=== PATIENT | male | born 1970 | race Caucasian/White ===

== ENCOUNTER 2016-10-21 12:23 | Observation (INO) | payer MEDICAID ==
[~2016-10-21] VITALS: Ht 182.9 cm; Wt 132.4 kg
[~2016-10-21 12:23] MED LIST: ASPI81CH43 PO; ENAL20TA70 PO; GLYB5TAB8 PO; METF-316 PO; TRIA50CA40 PO
[2016-10-21] MEDS ORDERED: SODIUM CHLORIDE 0.9% 1,000 ML IVB ONE (14:08)
[2016-10-21 15:04] LABS: Albumin 3.7 g/dL (3.4-5.0); BUN/Creatinine Ratio 16.7; Calcium 8.7 mg/dL (8.5-10.1); Magnesium 2.1 mg/dL (1.6-2.6); Potassium 4.7 mmol/L (3.5-5.1)
[2016-10-21 15:10] LABS: Bilirubin, Total 0.6 mg/dL (0.2-1.0); Total Protein 7.9 g/dL (6.4-8.2)
[2016-10-21 15:45] LABS: Basophils # (auto) 0.1 uL; Basophils % (auto) 0.6 % (0.0-2.0); Eosinophils # (auto) 0.5 uL; Eosinophils % (auto) 3.4 % (0.0-7.0); Hematocrit 48.8 % (41.0-53.0); Hemoglobin 16.5 g/dL (13.5-17.5); Lymphocytes # (auto) 2.3 uL; Lymphocytes % (auto) 16.5 % (10.0-50.0); Mean Corpuscular Hemoglobin 27.7 pg (28.0-32.0); Mean Corpuscular Hgb Conc. 33.7 g/dL (32.0-36.0); Mean Corpuscular Volume 82.3 fL (80.0-100.0); Mean Platelet Volume 9.5 fL (7.4-10.4); Monocytes # (auto) 0.8 uL; Monocytes % (auto) 5.4 % (0.0-12.0); Neutrophils # (auto) 10.4 uL; Neutrophils % (auto) 74.1 % (37.0-80.0); Platelet Count (auto) 408 10^3/uL (140-450); Red Cell Distribution Width 14.9 % (11.6-16.0); White Blood Cell 14.1 10^3/uL (4.4-10.8)
[2016-10-21 16:38] LABS: Urine Bilirubin Negative (Negative); Urine Blood Negative /uL (Negative); Urine Color Yellow (Yellow); Urine Ketone Negative (Negative); Urine Nitrite Negative (Negative); Urine RBC <1 /hpf (0 - 3); Urine Urobilinogen Normal (Negative)
[2016-10-21 16:51] LABS: Urine Glucose 3+ mg/dL (Normal)
[2016-10-21 17:08] VITALS: BP 136/87
== END 2016-10-21 17:32 | disposition home or self-care (01) | DRG 249 ==
LOC: ER 12:23 → OVERFLOW 12:24 → UNDOADMOB 12:24 → OVERFLOW 14:10 → ER 17:32 → UNDODISOB 17:33
PROVIDERS: ADMIT Emergency Medicine; ATTEND Emergency Medicine
DX: K52.9 Noninfective gastroenteritis and colitis, unspecified (principal); K90.49 Malabsorption due to intolerance, not elsewhere classified; I10 Essential (primary) hypertension; E11.9 Type 2 diabetes mellitus without complications; Z79.899 Other long term (current) drug therapy; Z79.82 Long term (current) use of aspirin
CPT/HCPCS: 36415; 71020; 74176; 80053; 81001; 82962; 83690; 83735; 85025; 93005; G0378

== ENCOUNTER 2017-07-17 21:44 | Emergency (ER) | payer MEDICAID ==
[~2017-07-17] VITALS: Ht 182.9 cm; Wt 136.1 kg
[~2017-07-17 21:44] MED LIST changes: -METF-316 PO; +METF-372 PO
[2017-07-17 22:05] VITALS: BP 170/99
[2017-07-17 23:10] LABS: Basophils # (auto) 0.1 uL; Basophils % (auto) 0.9 % (0.0-2.0); Eosinophils # (auto) 0.4 uL; Eosinophils % (auto) 3.1 % (0.0-7.0); Hematocrit 47.2 % (41.0-53.0); Hemoglobin 15.6 g/dL (13.5-17.5); Lymphocytes # (auto) 2.5 uL; Lymphocytes % (auto) 20.7 % (10.0-50.0); Mean Corpuscular Hemoglobin 28.4 pg (28.0-32.0); Mean Corpuscular Volume 86.1 fL (80.0-100.0); Mean Platelet Volume 9.1 fL (6.9-10.8); Monocytes # (auto) 0.9 uL; Monocytes % (auto) 7.4 % (0.0-12.0); Neutrophils # (auto) 8.3 uL; Neutrophils % (auto) 67.9 % (37.0-80.0); Platelet Count (auto) 300 10^3/uL (140-450); Red Cell Distribution Width 14.3 % (11.8-14.3); White Blood Cell 12.2 10^3/uL (4.4-10.8)
[2017-07-17 23:31] LABS: INR 0.96 (0.9-1.15); Partial Thromboplastin Time 26.2 sec (22.64-33.71); Prothrombin Time 10.5 sec (9.37-12.3)
[2017-07-17 23:41] LABS: Albumin 3.8 g/dL (3.4-5.0); BUN/Creatinine Ratio 10.1; Potassium 4.1 mmol/L (3.5-5.1)
[2017-07-17 23:54] LABS: Bilirubin, Total 0.8 mg/dL (0.2-1.0); Total Protein 7.9 g/dL (6.4-8.2)
== END 2017-07-18 03:00 | disposition left against medical advice (07) ==
LOC: ER 21:44
DX: M79.604 Pain in right leg (principal); Z53.21 Procedure and treatment not carried out due to patient leaving prior to being seen by health care provider
CPT/HCPCS: 36415; 80053; 85025; 85610; 85730; 93971

== ENCOUNTER 2017-10-04 21:29 | Emergency (ER) | payer MEDICAID ==
[~2017-10-04] VITALS: Ht 182.9 cm; Wt 136.1 kg
[2017-10-04 21:45] VITALS: BP 156/96
[2017-10-04 22:24] LABS: Hematocrit 47.8 % (41.0-53.0); Hemoglobin 16.1 g/dL (13.5-17.5); Mean Corpuscular Hemoglobin 29.1 pg (28.0-32.0); Mean Corpuscular Hgb Conc. 33.7 g/dL (32.0-36.0); Mean Corpuscular Volume 86.3 fL (80.0-100.0); Platelet Count (auto) 280 10^3/uL (140-450); Red Blood Cells 5.54 10^6/uL (4.5-5.90); Red Cell Distribution Width 14.4 % (11.8-14.3); White Blood Cell 9.2 10^3/uL (4.4-10.8)
[2017-10-04 22:32] LABS: Band Neutrophils % (manual) 0; Basophils % (manual) 0 (0.0-2.0); Blast Cells 0; Metamyelocytes % 0; Myelocytes % 0; Promyelocytes % 0; Reactive Lymphocytes 0
[2017-10-04 22:33] LABS: INR 0.96 (0.9-1.15); Partial Thromboplastin Time 26.4 sec (22.64-33.71); Prothrombin Time 10.5 sec (9.37-12.3)
[2017-10-04 22:34] LABS: Alanine Aminotransferase 24 U/L (16-61); Albumin 3.6 g/dL (3.4-5.0); Alkaline Phosphatase 103 U/L (45-117); Anion Gap 10 (5-15); Aspartate Aminotransferase 17 U/L (15-37); BUN/Creatinine Ratio 16.2; Bilirubin, Total 0.4 mg/dL (0.2-1.0); Blood Urea Nitrogen 17 mg/dL (7-18); Calcium 8.8 mg/dL (8.5-10.1); Carbon Dioxide 25 mmol/L (21-32); Chloride 99 mmol/L (98-107); GFR African American 97 mL/min; GFR Non-African American 80 mL/min; Magnesium 2.3 mg/dL (1.6-2.6); Potassium 4.4 mmol/L (3.5-5.1); Sodium 134 mmol/L (136-145); Total Protein 7.5 g/dL (6.4-8.2)
[2017-10-04 22:37] LABS: Eosinophils % (manual) 7 (0-7); Lymphocytes % (manual) 23 (10.0-50.0); Monocytes % (manual) 6 (0-12)
[2017-10-04 22:39] LABS: Glucose 415 mg/dL (74-106)
[2017-10-04] MEDS ORDERED: SODIUM CHLORIDE 0.9% 1,000 ML IV ONE (23:00)
[2017-10-05] MEDS ORDERED: InsuLIN REG 1unit/0.01ml Soln (100units/ml) IV ONE (00:45)
[2017-10-05] MEDS ORDERED: MORPHINE SULFATE 4 MG/ML SYR/VIAL IV ONE (01:00)
[2017-10-05] MEDS ORDERED: ONDANSETRON HCL 4 MG/2 ML VIAL IV ONE (01:00)
== END 2017-10-05 02:21 | disposition home or self-care (01) ==
LOC: EDBD 21:29 → ER 21:41
DX: R07.89 Other chest pain (principal); E11.65 Type 2 diabetes mellitus with hyperglycemia; I10 Essential (primary) hypertension; I25.2 Old myocardial infarction; Z79.82 Long term (current) use of aspirin
CPT/HCPCS: 36415; 71045; 80053; 82962; 83735; 83880; 84484; 85007; 85027; 85610; 85730; 93005; 96361; 96374; 96375; 99285; J1815; J2270; J2405; J7030

== ENCOUNTER 2018-07-31 10:46 | Emergency (ER) | payer MEDICAID ==
[~2018-07-31] VITALS: Ht 182.9 cm; Wt 131.5 kg
[2018-07-31] MEDS ORDERED: SODIUM CHLORIDE 0.9% 1,000 ML IV ONE (11:01)
[2018-07-31] MEDS ORDERED: KETOROLAC TROMETH 30 MG/ML 1ML VIAL IV ONE (11:15)
[2018-07-31] MEDS ORDERED: PROMETHAZINE HCL 25 MG/ML 1ML IV ONE (11:15)
[2018-07-31 11:46] LABS: Hematocrit 45.3 % (41.0-53.0); Hemoglobin 15.1 g/dL (13.5-17.5); Mean Corpuscular Hemoglobin 28.3 pg (28.0-32.0); Mean Corpuscular Hgb Conc. 33.3 g/dL (32.0-36.0); Platelet Count (auto) 167 10^3/uL (140-450); Red Blood Cells 5.33 10^6/uL (4.5-5.90); Red Cell Distribution Width 14.4 % (11.8-14.3); White Blood Cell 16.9 10^3/uL (4.4-10.8)
[2018-07-31 11:48] LABS: Basophils % (manual) 0 (0.0-2.0); Blast Cells 0; Eosinophils % (manual) 0 (0-7); Metamyelocytes % 0; Myelocytes % 0; Promyelocytes % 0; Reactive Lymphocytes 0
[2018-07-31 12:03] LABS: Band Neutrophils % (manual) 16; Lymphocytes % (manual) 3 (10.0-50.0); Monocytes % (manual) 6 (0-12)
[2018-07-31 12:04] LABS: Calcium 7.9 mg/dL (8.5-10.1); Potassium 4.1 mmol/L (3.5-5.1)
[2018-07-31 12:07] LABS: BUN/Creatinine Ratio 13.3; Bilirubin, Total 1.1 mg/dL (0.2-1.0)
[2018-07-31 14:57] VITALS: BP 112/56
[2018-07-31 15:59] LABS: Urine Bacteria FEW /hpf (None Seen); Urine Blood Negative /uL (Negative); Urine Hyaline Cast MOD /lpf (0 - 2); Urine WBC 4 /hpf (0 - 3)
== END 2018-07-31 16:32 | disposition home or self-care (01) ==
LOC: ER 10:46
DX: E86.0 Dehydration (principal); E11.65 Type 2 diabetes mellitus with hyperglycemia; M79.10 Myalgia, unspecified site; E11.21 Type 2 diabetes mellitus with diabetic nephropathy; E44.0 Moderate protein-calorie malnutrition; I10 Essential (primary) hypertension; I25.2 Old myocardial infarction; Z79.4 Long term (current) use of insulin; Z68.39 Body mass index [BMI] 39.0-39.9, adult
CPT/HCPCS: 36415; 71046; 80053; 81001; 82962; 83605; 83735; 84443; 85007; 85027; 87040; 87070; 87077; 87186; 87804; 87880; 96361; 96374; 96375; 99284; J1885; J2550; J7030

== ENCOUNTER 2018-08-02 11:18 | Inpatient (IN) | payer MEDICAID ==
[~2018-08-02] VITALS: Ht 182.9 cm; Wt 122.8 kg
[2018-08-02] MEDS ORDERED: SODIUM CHLORIDE 0.9% 1,000 ML IVB ONE (12:03)
[2018-08-02] MEDS ORDERED: cefTRIAXone 1GM/50ML D5W 50 ML IV ONE (12:30)
[2018-08-02 13:27] LABS: Basophils # (auto) 0 uL; Basophils % (auto) 0.2 % (0.0-2.0); Eosinophils # (auto) 0 uL; Eosinophils % (auto) 0.1 % (0.0-7.0); Hematocrit 43.8 % (41.0-53.0); Hemoglobin 14.1 g/dL (13.5-17.5); Lymphocytes # (auto) 0.4 uL; Lymphocytes % (auto) 2.8 % (10.0-50.0); Mean Corpuscular Hemoglobin 27.5 pg (28.0-32.0); Mean Corpuscular Hgb Conc. 32.2 g/dL (32.0-36.0); Mean Corpuscular Volume 85.4 fL (80.0-100.0); Monocytes # (auto) 0.8 uL; Monocytes % (auto) 5.2 % (0.0-12.0); Neutrophils # (auto) 13.6 uL; Neutrophils % (auto) 91.7 % (37.0-80.0); Nucleated Red Blood Cells % 0.1 %; Platelet Count (auto) 129 10^3/uL (140-450); Red Blood Cells 5.13 10^6/uL (4.5-5.90); White Blood Cell 14.8 10^3/uL (4.4-10.8)
[2018-08-02 13:44] LABS: Albumin 2.3 g/dL (3.4-5.0); Calcium 7.7 mg/dL (8.5-10.1); Potassium 3.3 mmol/L (3.5-5.1)
[2018-08-02 13:52] LABS: BUN/Creatinine Ratio 18.4; Total Protein 6.1 g/dL (6.4-8.2)
[2018-08-02] MEDS ORDERED: CLINDAMYCIN 600MG IV 50 ML IV ONE (14:15)
[2018-08-02] MEDS ORDERED: ACETAMINOPHEN 500 MG TAB PO PRN (14:45)
[2018-08-02] MEDS ORDERED: NITROGLYCERIN 0.4 MG SL TAB SL PRN (14:45)
[2018-08-02] MEDS ORDERED: LABETALOL HCL 5 MG/ML ML 20ML VIAL IV PRN (14:45)
[2018-08-02] MEDS ORDERED: VANCOMYCIN PER PHARMACY 0 MG IV SCH (14:45)
[2018-08-02] MEDS ORDERED: ONDANSETRON HCL 4 MG/2 ML VIAL IV PRN (14:45)
[2018-08-02] MEDS ORDERED: MORPHINE SULFATE 4 MG/ML SYR/VIAL IV PRN ×2 (14:45)
[2018-08-02] MEDS ORDERED: SODIUM CHLORIDE 0.9% 1,000 ML IV ONE (14:45)
[2018-08-02] MEDS ORDERED: InsuLIN REG 1unit/0.01ml Soln (100units/ml) IV ONE ×3 (14:45→20:45)
[2018-08-02] MEDS ORDERED: DEXTROSE (50%) 50ML SYRG IV PRN ×2 (14:45→17:30)
[2018-08-02 15:23] LABS: Amylase 14 U/L (25-115); Lipase 111 U/L (73-393)
[2018-08-02 15:34] LABS: INR 1.08 (0.9-1.15); Partial Thromboplastin Time 29.6 sec (23.78-33.04); Prothrombin Time 11.5 sec (9.27-12.13)
[2018-08-02] MEDS: SODIUM CHLORIDE 0.9% 1,000 ML IV SCH ×2 (16:10→22:21)
[2018-08-02] MEDS: VANCOMYCIN 1GM/250ML 250 ML IV SCH (16:16)
--- NOTE | 2018-08-02 16:27 | NUR ---
RECEIVED REPORT FROM ALETHA SHARIF FROM ER, WILL AWAIT PATIENTS ARRIVAL TO THE FLOOR.
[2018-08-02] MEDS ORDERED: InsuLIN REG 1unit/0.01ml Soln (100units/ml) SC SCH ×2 (17:00→22:00)
[2018-08-02] MEDS ORDERED: ACCU-CHEK COMFORT CURVE STRIP VI SCH (17:00)
--- NOTE | 2018-08-02 17:00 | NUR ---
RECEIVED PATIENT TO THE FLOOR AWAKE ALERT AND ORIENTED NO SIGNS AND SYMPTOMS OF DISTRESS NOTED. BED LOCKED IN LOWEST POSITION WITH TWO SIDE RAILS UP AND CALL LIGHT IN REACH. INSTRUCTED THE PATIENT ON THE PLAN OF CARE. WOUND PICTURES TAKEN AND ACCU CHECK WAS 468.
[2018-08-02] MEDS ORDERED: INSUINJ37 SC (17:07)
[2018-08-02] MEDS ORDERED: METO25TA5 PO (17:07)
[2018-08-02] MEDS ORDERED: ATOR10TA PO (17:07)
[2018-08-02] MEDS ORDERED: INSUINJ18 SC (17:08)
[2018-08-02 17:20] LABS: Lactic Acid w/Reflex 2.8 mmol/L (0.4-2.0)
--- NOTE | 2018-08-02 17:26 | NUR ---
PAGED ADMINISTRATION MANAGER HOSPITALIST AND DAVION BURTON RETURNED PHONE CALL. PATIENT IS TO RECEIVE 10 UNITS IV PUSH AND ADVANCE TO AGGRESSIVE SCALE AND COVER WITH THAT. SO THE PUSH WILL BE AC AND THE SUBCU WILL BE HS.
--- NOTE | 2018-08-02 17:40 | NUR ---
WOUND CARE PICTURES TAKEN X4
[2018-08-02] MEDS: ALBUTEROL SULF 2.5 MG/0.5ML(0.5%) NEB SOLN NEB SCH (18:59)
[2018-08-02] MEDS: IPRATROPIUM BROM 0.5 MG/2.5ML INH SOL NEB SCH (18:59)
--- NOTE | 2018-08-02 19:05 | NUR ---
ASSUMED PATIENT CARE- NOC SHIFT PATIENT IS ALERT AND ORIENTED X4, ANSWERS IN COMPLETE SENTENCES AND MAKES APPROPRIATE EYE CONTACT. PATIENT IS SITTING AT EDGE OF BED, COMPLAINING OF PAIN TO HIS RIGHT KNEE AND RIGHT LEG. PATIENT RATES PAIN 10/10; WILL ADMINISTER PAIN MEDICATION PER MD ORDERS. ASSISTED PATIENT BACK INTO BED AND PROVIDE A PILLOW TO ELEVATE HIS LEFT LEG. BED RAILS UP X2, HEAD OF BED IS UP >30 DEGREES FOR SAFETY PRECAUTIONS. BEDSIDE TABLE WITHIN REACH, CALL LIGHT WITHIN REACH. DISCUSSED POC WITH PATIENT AND INSTRUCTED PATIENT TO CALL PRN; PATIENT VERBALIZED UNDERSTANDING. WILL CONTINUE TO MONITOR Q1H AND PRN.
[2018-08-02 20:00] LABS: BUN/Creatinine Ratio 20.2; Calcium 7.4 mg/dL (8.5-10.1); Potassium 4.1 mmol/L (3.5-5.1)
[2018-08-02 20:02] LABS: Lactic Acid w/Reflex 2.8 mmol/L (0.4-2.0)
[2018-08-02 20:10] VITALS: BP 102/71
[2018-08-02] MEDS ORDERED: MORPHINE SULF INJ 2 MG/ML SYRINGE 1ML IV PRN (20:15)
[2018-08-02] MEDS: MORPHINE SULF INJ 2 MG/ML SYRINGE 1ML IV PRN (20:20)
--- NOTE | 2018-08-02 20:30 | NUR ---
UPDATED HOSPITALIST GWEN WITH PATIENT CHEMISTRY PANEL AND SWELLING AT RIGHT KNEE, WARM TO TOUCH AND PAIN 10/10. ORDERS WERE PLACED.
[2018-08-02] MEDS ORDERED: MORPHINE SULFATE 4 MG/ML SYR/VIAL IV ONE (20:45)
[2018-08-02] MEDS ORDERED: MORPHINE SULF INJ 2 MG/ML SYRINGE 1ML IV ONE (21:15)
[2018-08-02 22:00] VITALS: BP 102/71
[2018-08-02] MEDS: INSULIN LANTUS (GLARGINE) 1 /0.01ml (100units/ml) SC SCH (22:20)
[2018-08-02] MEDS: ACCU-CHEK COMFORT CURVE STRIP VI SCH (22:20)
[2018-08-02] MEDS: InsuLIN REG 1unit/0.01ml Soln (100units/ml) SC SCH (22:20)
--- NOTE | 2018-08-02 23:00 | NUR ---
PROVIDED PATIENT WITH COLD PACKS FOR RIGHT KNEE PAIN.
[2018-08-02] MEDS: HYDROcodone-ACET 5/325MG TAB PO PRN (23:25)
[2018-08-03] VITALS (7 sets, daily range): BP systolic 102–135; BP diastolic 71–81
[2018-08-03] MEDS: MORPHINE SULF INJ 2 MG/ML SYRINGE 1ML IV PRN ×2 (00:59→05:00)
--- NOTE | 2018-08-03 03:00 | NUR ---
VANCOMYCIN TOXICITY TROUGH ORDERED FOR VANCOMYCIN DOSE SCHEDULED FOR 0400 PER [facility].
[2018-08-03 04:06] LABS: Basophils # (auto) 0.1 uL; Basophils % (auto) 0.7 % (0.0-2.0); Eosinophils # (auto) 0.2 uL; Eosinophils % (auto) 1.1 % (0.0-7.0); Hematocrit 40.3 % (41.0-53.0); Hemoglobin 13.5 g/dL (13.5-17.5); Lymphocytes # (auto) 1.7 uL; Lymphocytes % (auto) 10.7 % (10.0-50.0); Mean Corpuscular Hemoglobin 28.2 pg (28.0-32.0); Mean Corpuscular Hgb Conc. 33.6 g/dL (32.0-36.0); Mean Corpuscular Volume 83.9 fL (80.0-100.0); Monocytes # (auto) 1.5 uL; Monocytes % (auto) 9.2 % (0.0-12.0); Neutrophils # (auto) 12.5 uL; Neutrophils % (auto) 78.3 % (37.0-80.0); Nucleated Red Blood Cells % 0.2 %; Platelet Count (auto) 155 10^3/uL (140-450); Red Cell Distribution Width 14.9 % (11.8-14.3); White Blood Cell 15.9 10^3/uL (4.4-10.8)
[2018-08-03 04:30] LABS: Calcium 7.6 mg/dL (8.5-10.1); Potassium 3.5 mmol/L (3.5-5.1)
[2018-08-03 04:34] LABS: Bilirubin, Total 0.7 mg/dL (0.2-1.0); Total Protein 5.8 g/dL (6.4-8.2)
[2018-08-03] MEDS: VANCOMYCIN 1GM/250ML 250 ML IV SCH (04:59)
--- NOTE | 2018-08-03 05:25 | NUR ---
PROVIDED PATIENT WITH ICE PACK FOR PAIN RELIEF AT RIGHT KNEE. PATIENT STATES THAT THE COLD DOES NOT RELIEVE PAIN BUT "PROVIDES SOME SORT OF COMFORT"
[2018-08-03] MEDS: IPRATROPIUM BROM 0.5 MG/2.5ML INH SOL NEB SCH ×4 (06:29→19:51)
[2018-08-03] MEDS: ALBUTEROL SULF 2.5 MG/0.5ML(0.5%) NEB SOLN NEB SCH ×4 (06:29→19:51)
[2018-08-03] MEDS: SODIUM CHLORIDE 0.9% 1,000 ML IV SCH ×3 (07:07→22:56)
[2018-08-03] MEDS: HYDROcodone-ACET 5/325MG TAB PO PRN (07:08)
--- NOTE | 2018-08-03 07:10 | NUR ---
ENDORSED PATIENT CARE TO DAY SHIFT NURSE. PATIENT IS RESTING IN BED. PATIENT REPORTS UNRELIEVED PAIN OF 10/10 BUT STATES THAT ICE IS HELPING WITH COMFORT.
[2018-08-03] MEDS: InsuLIN REG 1unit/0.01ml Soln (100units/ml) SC SCH ×4 (07:18→22:33)
[2018-08-03] MEDS: ACCU-CHEK COMFORT CURVE STRIP VI SCH ×4 (07:18→22:33)
--- NOTE | 2018-08-03 07:40 | NUR ---
Opening Shift Note Assumed care of patient, awake and alert. No S/S of distress/SOB or pain. Instructed on POC and to call for assist PRN, will continue to monitor for changes Q1hr and PRN. Bed locked in lowest position and two side rails up with call light in reach. Patient still complains of pain and was given an ice pack per his request.
--- NOTE | 2018-08-03 09:28 | NUR ---
RECEIVED A CALL FROM LAB ([facility]) REGARDING BLOOD CULTURES PATIENT IS + FOR GRAM COCCI AND GRAM CLUSTERS
[2018-08-03] MEDS: ENOXAPARIN SOD 40 MG/0.4 ML SYRINGE SC SCH (09:35)
[2018-08-03] MEDS: LEVOFLOXACIN 750MG 150 ML IV SCH (09:35)
--- NOTE | 2018-08-03 10:30 | NUR ---
WOUND CARE NOTE: IN TO SEE PATIENT AT THIS TIME PER WOUND CARE CONSULT REQUEST. PATIENT RECENTLY ADMITTED TO [facility] WITH DIAGNOSIS OF SEPSIS. 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 LEFT MEDIAL PLANTAR AND RIGHT PLANTAR FOOT ARE CLOSED WITH BLACK ESCHAR. LEFT OPEN TO AIR. LEFT LATERAL/PLANTAR FOOT HAS DRY OPEN WOUND, MEASURING 2 X 2.0 X 2 CM. WOUND PHOTOS WERE TAKEN UPON ADMIT BY BEDSIDE NURSE FOR REFERENCE. PATIENT HAS A CURRENT ALLISON SCORE OF 18. HE IS AMBULATORY, BUT DOES HAVE A RIGHT ANTERIOR KNEE THAT IS ERYTHEMIC WITH EDEMA, VERY PAINFUL TO THE TOUCH. DOESN'T APPEAR INDURATED AT THIS POINT. PATIENT UNSURE OF WHAT COULD HAVE CAUSED HIS SWELLING TO THE RIGHT KNEE. HE DENIES ANY TRAUMA OR FALLING. LEFT PLANTAR FOOT DFU CLEANSED WITH WOUND CLEANSER, PATTED DRY WITH STERILE GAUZE. APPLIED THERAHONEY, OPTIFOAM AND KERLIX WRAP. ELEVATED BOTH FEET/LEGS UP ON PILLOWS FOR EDEMA CONTROL. ALL OTHER WOUNDS WERE LEFT OPEN TO AIR. RECOMMEND: EOD/PRN DRESSING CHANGE TO LEFT PLANTAR FOOT, PODIATRY CONSULT (PENDING), DIETARY CONSULT, CONTINUED MONITORING BY WOUND CARE TEAM. Addendum: 08/03/18 at 1530 by Jennifer Lucero RN Amended: Links added.
[2018-08-03] MEDS: HYDROmorphone HCL 2 MG/ML VL IV PRN ×3 (14:44→21:33)
[2018-08-03] MEDS ORDERED: VANCOMYCIN 1GM/250ML 250 ML IV SCH ×2 (16:00)
[2018-08-03] MEDS: VANCOMYCIN 1,500 MG in D5W 5% 250 ML IV SCH (16:36)
--- NOTE | 2018-08-03 19:35 | NUR ---
Opening Shift Note Assumed care of patient, awake and alert. No S/S of distress/SOB. Instructed on POC and to call for assist when needed. Pt is currently sitting in bed with the rails up x2, bed is locked in lowest position and call light is within reach. Pt has a 18ga IV right forearm that flushes without discomfort. Will continue to monitor.
[2018-08-03] MEDS: INSULIN LANTUS (GLARGINE) 1 /0.01ml (100units/ml) SC SCH (22:33)
[2018-08-04] VITALS (7 sets, daily range): BP systolic 130–141; BP diastolic 74–85
[2018-08-04] MEDS: HYDROmorphone HCL 2 MG/ML VL IV PRN ×6 (02:21→21:59)
[2018-08-04] MEDS: VANCOMYCIN 1,500 MG in D5W 5% 250 ML IV SCH ×3 (04:19→18:30)
--- NOTE | 2018-08-04 04:36 | NUR ---
Left foot wound swab sent to lab.
[2018-08-04] MEDS: InsuLIN REG 1unit/0.01ml Soln (100units/ml) SC SCH ×4 (06:21→22:00)
[2018-08-04] MEDS: SODIUM CHLORIDE 0.9% 1,000 ML IV SCH ×3 (06:21→23:28)
[2018-08-04] MEDS: ACCU-CHEK COMFORT CURVE STRIP VI SCH ×4 (06:22→21:59)
[2018-08-04 06:26] LABS: Hemoglobin 13.2 g/dL (13.5-17.5); Mean Corpuscular Hemoglobin 28.3 pg (28.0-32.0); Mean Corpuscular Volume 85.8 fL (80.0-100.0); Platelet Count (auto) 216 10^3/uL (140-450); Red Blood Cells 4.67 10^6/uL (4.5-5.90); Red Cell Distribution Width 14.9 % (11.8-14.3); White Blood Cell 16.7 10^3/uL (4.4-10.8)
[2018-08-04] MEDS: IPRATROPIUM BROM 0.5 MG/2.5ML INH SOL NEB SCH ×4 (06:43→19:10)
[2018-08-04] MEDS: ALBUTEROL SULF 2.5 MG/0.5ML(0.5%) NEB SOLN NEB SCH ×4 (06:43→19:10)
[2018-08-04 06:48] LABS: Potassium 4.1 mmol/L (3.5-5.1)
[2018-08-04 06:53] LABS: Albumin 1.9 g/dL (3.4-5.0); BUN/Creatinine Ratio 19.4; Bilirubin, Total 0.7 mg/dL (0.2-1.0); Calcium 7.9 mg/dL (8.5-10.1); Magnesium 2.3 mg/dL (1.6-2.6); Total Protein 6.2 g/dL (6.4-8.2)
[2018-08-04 07:29] LABS: Basophils % (manual) 0 (0.0-2.0); Blast Cells 0; Metamyelocytes % 0; Promyelocytes % 0; Reactive Lymphocytes 0
[2018-08-04 09:51] LABS: Band Neutrophils % (manual) 4; Eosinophils % (manual) 2 (0-7); Lymphocytes % (manual) 9 (10.0-50.0); Monocytes % (manual) 14 (0-12); Myelocytes % 1
[2018-08-04] MEDS: DAKINS QUARTER STR 0.125% (NaHypochlorite) 473 ML TOPICAL SOL TOP SCH (10:00)
[2018-08-04] MEDS: ENOXAPARIN SOD 40 MG/0.4 ML SYRINGE SC SCH (10:05)
[2018-08-04] MEDS: LEVOFLOXACIN 750MG 150 ML IV SCH (10:05)
--- NOTE | 2018-08-04 14:00 | NUR ---
Nutrition Assessment/consult Notes please see attached link for complete assessment Est. Needs ABW [id number] kcal (17-20 kcal/kgBW), 102-112 gms pro (1.0-1.1 gms/kgBW r/t severe hypoalb wounds). Will continue to monitor pertinent labs and reassess nutrient need prn Addendum: 08/04/18 at [address] Amended: Links added.
--- NOTE | 2018-08-04 16:00 | NUR ---
Dr. Anderson in to see patient as primary physician. Order received for PICC line. PICC line RN informed.
--- NOTE | 2018-08-04 17:02 | NUR ---
MRI left foot completed. Per [facility] procedures tech, patient's wound on left foot broke open when patient put weight on his left foot. Wound photo taken, bilateral feet wounds cleaned and dressed.
--- NOTE | 2018-08-04 17:19 | NUR ---
PICC line RN at bedside.
[2018-08-04 17:49] LABS: Prothrombin Time 10.7 sec (9.27-12.13)
[2018-08-04] MEDS ORDERED: LIDOCAINE 1% (LOCAL ANESTH.) PF 5ml SDV ID ONE (18:00)
--- NOTE | 2018-08-04 18:01 | NUR ---
PICC line placement Patient educated on need for PICC line placement. All risks and benefits explained and all questions and concerns addressed prior to procedure. Noted past medical history and allergies with no contraindications. INR and Plt counts within acceptable range. 4 fr PICC line inserted via basilic vein using [employer] US and Tip Location System. Sterile technique with maximum barrier precautions utilized. Blood return obtained from single lumen and each flushed easily with NS using proper technique. PICC secured with Stat-lock; biodisc and occlusive dressing applied. Stat portable chest x-ray obtained for PICC tip placement. *Baseline Arm Circumference 34 cm. *Internal Length 50 cm. *External Length 0 cm. *PICC lot #[id number]. Note:PICC line inserted by Brad Noe RN.
--- NOTE | 2018-08-04 19:10 | NUR ---
RT NOTE PT WAS SEEN BY RT FOR HHN TX. PT TOLERATES WELL VIA MASK. NO ADVERSE REACTION NOTED. PT HAS 2L NASAL CANNULA ON AT BEDSIDE. CONT ORDERED Addendum: 08/04/18 at 2034 by Amena Terrazas RT Amended: Links added.
--- NOTE | 2018-08-04 19:20 | NUR ---
Opening Shift Note Assumed care of patient from day shift RN Lisa. Pt is awake and alert and oriented x4. No S/S of distress/SOB. Pt complains of pain 7/10 in feet. Educated pt that pain medication not due at this time, pt verbalized understanding. Safety maintained with bed rails upx2, locked and in lowest position with call kay within reach. Instructed on POC and to call for assist PRN, will continue to monitor for changes Q1hr and PRN.
[2018-08-04] MEDS: SODIUM CHLOR 0.9% PF (SALINE LOCK) 10ML VIAL/SYR IV SCH (21:59)
[2018-08-04] MEDS: INSULIN LANTUS (GLARGINE) 1 /0.01ml (100units/ml) SC SCH (22:00)
[2018-08-05] MEDS: ALBUTEROL SULF 2.5 MG/0.5ML(0.5%) NEB SOLN NEB SCH ×4 (00:47→18:49)
[2018-08-05] MEDS: IPRATROPIUM BROM 0.5 MG/2.5ML INH SOL NEB SCH ×4 (00:48→18:49)
--- NOTE | 2018-08-05 00:54 | NUR ---
RT NOTE PT WAS SEEN BY RT FOR HHN TX. PT TOLERATES WELL VIA MASK. NO ADVERSE REACTION NOTED. CONT ORDERED Addendum: 08/05/18 at 0056 by Amena Terrazas RT Amended: Links added.
[2018-08-05] MEDS: HYDROmorphone HCL 2 MG/ML VL IV PRN ×5 (01:32→23:58)
[2018-08-05 04:41] LABS: BUN/Creatinine Ratio 15.9; Calcium 7.3 mg/dL (8.5-10.1); Magnesium 2.1 mg/dL (1.6-2.6); Potassium 3.6 mmol/L (3.5-5.1)
[2018-08-05] MEDS: VANCOMYCIN 1,500 MG in D5W 5% 250 ML IV SCH ×2 (04:43→16:31)
[2018-08-05 04:50] LABS: Hematocrit 38.2 % (41.0-53.0); Hemoglobin 12.5 g/dL (13.5-17.5); Mean Corpuscular Hemoglobin 27.4 pg (28.0-32.0); Mean Corpuscular Hgb Conc. 32.6 g/dL (32.0-36.0); Mean Corpuscular Volume 84.1 fL (80.0-100.0); Platelet Count (auto) 259 10^3/uL (140-450); Red Blood Cells 4.54 10^6/uL (4.5-5.90); Red Cell Distribution Width 14.8 % (11.8-14.3); White Blood Cell 11.4 10^3/uL (4.4-10.8)
[2018-08-05 04:56] LABS: Basophils % (manual) 0 (0.0-2.0); Blast Cells 0; Myelocytes % 0; Promyelocytes % 0; Reactive Lymphocytes 0
[2018-08-05 05:43] VITALS: BP 141/88
[2018-08-05] MEDS: SODIUM CHLORIDE 0.9% 1,000 ML IV SCH ×2 (06:19→17:00)
[2018-08-05] MEDS: InsuLIN REG 1unit/0.01ml Soln (100units/ml) SC SCH ×4 (06:19→22:48)
[2018-08-05] MEDS: ACCU-CHEK COMFORT CURVE STRIP VI SCH ×4 (06:19→22:48)
[2018-08-05 08:00] VITALS: BP 152/90
--- NOTE | 2018-08-05 08:00 | NUR ---
md madie lagunas at bedside and assessed the patient, aspirated the fluid on the right knee for culture and others and to call the lab to add on crystal check for this. informed md lagunas re: abi tolentino doing debridement today on bilateral foot and he said that is okay.
--- NOTE | 2018-08-05 08:05 | NUR ---
right knee aspirated fluid was sent to lab
--- NOTE | 2018-08-05 08:19 | NUR ---
called lab and initially spoke with abhay casillas: the crystal to be check on the aspirated knee fluid but he said he is not aware so he transferred me to micro and they are not aware either so was transferred to chemistry and the staff told me just put crystal id light and that is okay to check on crystals for the fluid, will put orders in
[2018-08-05 08:30] VITALS: BP 152/90
[2018-08-05 08:50] LABS: Band Neutrophils % (manual) 5; Eosinophils % (manual) 1 (0-7); Lymphocytes % (manual) 18 (10.0-50.0); Metamyelocytes % 1; Monocytes % (manual) 9 (0-12)
--- NOTE | 2018-08-05 08:54 | NUR ---
OK to use PICC line Xray completed. OK to use PICC line. Spoke with Dr. Grijalva who stated the PICC line was okay to use.
[2018-08-05] MEDS: LEVOFLOXACIN 750MG 150 ML IV SCH (09:14)
[2018-08-05] MEDS: ENOXAPARIN SOD 40 MG/0.4 ML SYRINGE SC SCH (09:14)
[2018-08-05] MEDS: DAKINS QUARTER STR 0.125% (NaHypochlorite) 473 ML TOPICAL SOL TOP SCH (10:00)
[2018-08-05] MEDS: SODIUM CHLOR 0.9% PF (SALINE LOCK) 10ML VIAL/SYR IV SCH ×2 (10:00→22:48)
--- NOTE | 2018-08-05 11:03 | NUR ---
SPOKE WITH MD CAVAZOS AT BEDSIDE RE: PATIENT IV AT 125ML/HR. PER MD CAVAZOS CHANGE THE RATE TO 70 ONCE PATIENT IS EATING.
--- NOTE | 2018-08-05 12:29 | NUR ---
PATIENT WAS ENDORSED TO PRE OP RN ARIANNE
[2018-08-05] MEDS ORDERED: ceFAZolin 1GM/50ML 50 ML IV ONE (12:41)
[2018-08-05 12:43] VITALS: BP 146/64
[2018-08-05] MEDS ORDERED: MIDAZOLAM HCL 1MG/1ML-2 ML VIAL ONE ×2 (12:52→14:05)
[2018-08-05] MEDS ORDERED: METOCLOPRAMIDE HCL 5MG/ml INJ 2ml VIAL ONE (12:52)
[2018-08-05] MEDS ORDERED: diphenhdrAMINE HCL 50 MG/1 ML VL ONE (12:52)
[2018-08-05] MEDS ORDERED: LIDOCAINE 2% (LOCAL ANESTH.) PF 5ml SDV ONE (12:55)
[2018-08-05] MEDS ORDERED: PROPOFOL 10 MG/ML 20 ML IV ONE (12:56)
[2018-08-05] MEDS ORDERED: BACITRACIN INJ 50000 UNIT VIAL ONE (13:43)
[2018-08-05] MEDS ORDERED: LIDOCAINE 1% HCL (LOCAL ANESTH.) INJ 20ML MDV ONE ×2 (13:43→14:18)
[2018-08-05] MEDS ORDERED: HYDROmorphone HCL 2 MG/ML VL IV PRN ×2 (14:00)
[2018-08-05] MEDS ORDERED: ACCU-CHEK COMFORT CURVE STRIP VI ONE (14:00)
[2018-08-05] MEDS ORDERED: NALOXONE HCL 0.4 MG/ML VIAL IV PRN (14:00)
[2018-08-05] MEDS ORDERED: ONDANSETRON HCL 4 MG/2 ML VIAL IV ONE (14:00)
[2018-08-05] MEDS ORDERED: fentaNYL CITRATE 100 MCG/2 ML VL ONE (14:02)
[2018-08-05] MEDS ORDERED: GLYCOPYRROLATE 0.2 MG/ML 1ML VIAL ONE (14:07)
[2018-08-05] MEDS ORDERED: hydrALAZINE HCL 20 MG/ML VL ONE (14:17)
--- NOTE | 2018-08-05 15:52 | NUR ---
PATIENT CAME BACK FROM OR. DRESSING ON THE BILATERAL FOOT WAS CLEAN AND DRY AND INTACT
[2018-08-05 16:26] VITALS: BP 150/81
[2018-08-05] MEDS: HYDROcodone-ACET 5/325MG TAB PO PRN (16:38)
--- NOTE | 2018-08-05 18:49 | NUR ---
RT NOTE PT WAS SEEN BY RT FOR HHN TX. PT TOLERATES WELL VIA MASK. NO ADVERSE REACTION NOTED. PT SWTQATESW HE HAS A NON-PRODUCTIVE COUGH. CONT ORDERED Addendum: 08/05/18 at 1856 by Amena Terrazas RT Amended: Links added.
--- NOTE | 2018-08-05 19:40 | NUR ---
Opening Shift Note Assumed care of patient from day shift RN Lisa. Pt is awake and alert and oriented x4. No S/S of distress/SOB. Pt. reporting pain 9/10 to right knee, will medicate as ordered. Bed rails up x2, bed locked and in lowest position with call aky within reach. Instructed on POC and to call for assist PRN, will continue to monitor for changes Q1hr and PRN.
[2018-08-05] MEDS: INSULIN LANTUS (GLARGINE) 1 /0.01ml (100units/ml) SC SCH (22:48)
[2018-08-05 23:21] VITALS: BP 150/81
[2018-08-06] MEDS: ALBUTEROL SULF 2.5 MG/0.5ML(0.5%) NEB SOLN NEB SCH ×3 (00:31→22:20)
[2018-08-06] MEDS: IPRATROPIUM BROM 0.5 MG/2.5ML INH SOL NEB SCH ×3 (00:31→22:20)
--- NOTE | 2018-08-06 00:31 | NUR ---
RT NOTE PT WAS SEEN BY RT FOR HHN TX. PT TOLERATES WELL VIA MASK. NO ADVERSE REACTION NOTED. CONT ORDERED Addendum: 08/06/18 at 0052 by Amena Terrazas RT Amended: Links added.
[2018-08-06] MEDS: VANCOMYCIN 1,500 MG in D5W 5% 250 ML IV SCH ×2 (03:43→16:21)
[2018-08-06] MEDS: HYDROmorphone HCL 2 MG/ML VL IV PRN ×7 (03:53→23:40)
[2018-08-06] MEDS: ACCU-CHEK COMFORT CURVE STRIP VI SCH ×4 (06:59→23:02)
[2018-08-06] MEDS: SODIUM CHLORIDE 0.9% 1,000 ML IV SCH ×2 (07:00→21:36)
[2018-08-06] MEDS: InsuLIN REG 1unit/0.01ml Soln (100units/ml) SC SCH ×4 (07:05→23:39)
--- NOTE | 2018-08-06 07:34 | NUR ---
Closing Note Patient lying in bed, awake and alert. No s/s of distress. Care endorsed to dar Gonzalez RN.
[2018-08-06 09:00] VITALS: BP 167/94
[2018-08-06] MEDS: LEVOFLOXACIN 750MG 150 ML IV SCH (09:56)
[2018-08-06] MEDS: ENOXAPARIN SOD 40 MG/0.4 ML SYRINGE SC SCH (09:56)
[2018-08-06] MEDS: SODIUM CHLOR 0.9% PF (SALINE LOCK) 10ML VIAL/SYR IV SCH ×2 (10:00→23:02)
[2018-08-06] MEDS: DAKINS QUARTER STR 0.125% (NaHypochlorite) 473 ML TOPICAL SOL TOP SCH (10:00)
[2018-08-06 13:00] VITALS: BP 170/103
[2018-08-06 17:00] VITALS: BP 163/91
--- NOTE | 2018-08-06 18:18 | NUR ---
Patient's B/P 163/91. Attempted to page Dr. Anderson. No answering service available.
--- NOTE | 2018-08-06 19:45 | NUR ---
Opening Shift Note Assumed care of patient from day shift RN. Pt is awake and alert and oriented x4. No S/S of distress/SOB. Pt. reporting pain to right knee, will medicate as ordered. Bed rails up x2, bed locked and in lowest position with call kay within reach. Instructed on POC and to call for assist PRN, will continue to monitor for changes Q1hr and PRN.
[2018-08-06 22:00] VITALS: BP 158/90
[2018-08-06] MEDS: INSULIN LANTUS (GLARGINE) 1 /0.01ml (100units/ml) SC SCH (23:40)
[2018-08-07] MEDS: HYDROmorphone HCL 2 MG/ML VL IV PRN ×6 (02:44→20:46)
[2018-08-07] MEDS: VANCOMYCIN 1,500 MG in D5W 5% 250 ML IV SCH ×2 (04:09→16:09)
[2018-08-07 05:00] VITALS: BP 164/95
[2018-08-07] MEDS: ACCU-CHEK COMFORT CURVE STRIP VI SCH ×4 (06:00→22:49)
[2018-08-07] MEDS: ALBUTEROL SULF 2.5 MG/0.5ML(0.5%) NEB SOLN NEB SCH ×3 (06:57→20:04)
[2018-08-07] MEDS: IPRATROPIUM BROM 0.5 MG/2.5ML INH SOL NEB SCH ×3 (06:57→20:04)
[2018-08-07] MEDS: InsuLIN REG 1unit/0.01ml Soln (100units/ml) SC SCH ×4 (07:00→22:57)
--- NOTE | 2018-08-07 07:29 | NUR ---
Closing Note Patient lying in bed, awake and alert. No s/s of distress. Care endorsed to dayssolange SHARIF. Addendum: 08/07/18 at 0737 by HAILEY BAUTISTA RN RN CORRECTION: Time of note should be 07:36.
--- NOTE | 2018-08-07 07:31 | NUR ---
Paged Dr. Monica Anderson's exchange paged to attempt to inform him patient's blood pressure is 164/95 with a 92 heart rate. Received recording stating [facility] was now closed. Called again on phone number dar SHARIF attempted yesterday per report ([phone]), recieved similar recording, but message left. Dar RN aware.
[2018-08-07 09:07] VITALS: BP 142/92
[2018-08-07] MEDS: ENOXAPARIN SOD 40 MG/0.4 ML SYRINGE SC SCH (09:26)
[2018-08-07] MEDS: LEVOFLOXACIN 750MG 150 ML IV SCH (09:27)
[2018-08-07] MEDS: SODIUM CHLOR 0.9% PF (SALINE LOCK) 10ML VIAL/SYR IV SCH ×2 (09:27→22:49)
--- NOTE | 2018-08-07 09:30 | NUR ---
Dr. Peña at bedside for podiatry followup. Bilateral feet wounds viewed. Received new orders for wound care and dressing changes.
[2018-08-07 10:56] LABS: Hematocrit 39.4 % (41.0-53.0); Hemoglobin 13.1 g/dL (13.5-17.5); Mean Corpuscular Hemoglobin 28.1 pg (28.0-32.0); Mean Corpuscular Hgb Conc. 33.3 g/dL (32.0-36.0); Mean Corpuscular Volume 84.2 fL (80.0-100.0); Platelet Count (auto) 365 10^3/uL (140-450); Red Blood Cells 4.68 10^6/uL (4.5-5.90); Red Cell Distribution Width 14.8 % (11.8-14.3); White Blood Cell 11.8 10^3/uL (4.4-10.8)
[2018-08-07 11:01] LABS: Basophils % (manual) 0 (0.0-2.0); Blast Cells 0; Promyelocytes % 0; Reactive Lymphocytes 0
[2018-08-07 11:19] LABS: BUN/Creatinine Ratio 16.9; Potassium 4.3 mmol/L (3.5-5.1)
[2018-08-07 12:42] VITALS: BP 156/96
[2018-08-07 17:00] VITALS: BP 154/94
[2018-08-07 17:05] LABS: Band Neutrophils % (manual) 2; Eosinophils % (manual) 7 (0-7); Lymphocytes % (manual) 12 (10.0-50.0); Metamyelocytes % 2; Monocytes % (manual) 9 (0-12); Myelocytes % 1
[2018-08-07] MEDS: SODIUM CHLORIDE 0.9% 1,000 ML IV SCH (19:05)
--- NOTE | 2018-08-07 19:40 | NUR ---
Dr. Andersno At Bedside Dr. Anderson at bedside, plan of care discussed. New order received for Hydralazine 10 MG IV every four hours as needed for systolic blood pressure over 160. Order read back and verified. Will implement as ordered and continue to monitor.
[2018-08-07] MEDS ORDERED: hydrALAZINE HCL 20 MG/ML VL IV PRN (20:00)
[2018-08-07 22:00] VITALS: BP 135/95
[2018-08-07] MEDS: INSULIN LANTUS (GLARGINE) 1 /0.01ml (100units/ml) SC SCH (22:58)
[2018-08-08] MEDS: HYDROmorphone HCL 2 MG/ML VL IV PRN ×8 (00:25→23:25)
[2018-08-08] MEDS: IPRATROPIUM BROM 0.5 MG/2.5ML INH SOL NEB SCH ×5 (00:41→20:25)
[2018-08-08] MEDS: ALBUTEROL SULF 2.5 MG/0.5ML(0.5%) NEB SOLN NEB SCH ×5 (00:41→20:25)
[2018-08-08] MEDS: SODIUM CHLORIDE 0.9% 1,000 ML IV SCH ×2 (02:08→15:59)
[2018-08-08] MEDS: VANCOMYCIN 1,500 MG in D5W 5% 250 ML IV SCH ×2 (03:50→15:59)
[2018-08-08 05:00] VITALS: BP 158/88
[2018-08-08] MEDS: ACCU-CHEK COMFORT CURVE STRIP VI SCH ×4 (06:10→22:14)
[2018-08-08 06:55] LABS: Hematocrit 43.6 % (41.0-53.0); Hemoglobin 14.2 g/dL (13.5-17.5); Mean Corpuscular Hemoglobin 27.7 pg (28.0-32.0); Mean Corpuscular Hgb Conc. 32.7 g/dL (32.0-36.0); Mean Corpuscular Volume 84.8 fL (80.0-100.0); Platelet Count (auto) 407 10^3/uL (140-450); Red Blood Cells 5.14 10^6/uL (4.5-5.90); Red Cell Distribution Width 14.8 % (11.8-14.3); White Blood Cell 12.9 10^3/uL (4.4-10.8)
[2018-08-08] MEDS: InsuLIN REG 1unit/0.01ml Soln (100units/ml) SC SCH ×4 (07:00→22:15)
[2018-08-08 07:12] LABS: BUN/Creatinine Ratio 15.6; Calcium 8.4 mg/dL (8.5-10.1); Potassium 4.3 mmol/L (3.5-5.1)
[2018-08-08 07:16] LABS: Band Neutrophils % (manual) 0; Basophils % (manual) 0 (0.0-2.0); Blast Cells 0; Metamyelocytes % 0; Myelocytes % 0; Promyelocytes % 0; Reactive Lymphocytes 0
--- NOTE | 2018-08-08 07:25 | NUR ---
Closing Note Patient lying in bed, awake and alert. No s/s of distress. Care endorsed to dayshift RN.
--- NOTE | 2018-08-08 07:40 | NUR ---
Patient in bed, awake, oriented x4. No acute distress noted.
[2018-08-08 09:00] VITALS: BP 126/76
[2018-08-08] MEDS: ENOXAPARIN SOD 40 MG/0.4 ML SYRINGE SC SCH (09:50)
[2018-08-08] MEDS: LEVOFLOXACIN 750MG 150 ML IV SCH (09:51)
--- NOTE | 2018-08-08 10:06 | NUR ---
Patient stated his pain level at 9/10 at this time. Dilaudid Inj via IVP given as ordered.
[2018-08-08 10:27] LABS: Eosinophils % (manual) 2 (0-7); Lymphocytes % (manual) 16 (10.0-50.0); Monocytes % (manual) 3 (0-12)
[2018-08-08] MEDS: SODIUM CHLOR 0.9% PF (SALINE LOCK) 10ML VIAL/SYR IV SCH ×2 (11:28→22:14)
--- NOTE | 2018-08-08 12:00 | NUR ---
Family at bedside.
[2018-08-08 12:44] VITALS: BP 139/85
--- NOTE | 2018-08-08 13:33 | NUR ---
Patient stated he's in pain. Dilaudid IVP given as ordered.
--- NOTE | 2018-08-08 14:34 | NUR ---
Nutrition Follow-up Notes Wt.: 120.5 kg as of yesterday. Pt's asleep, no immediate family member at bedside when rounded this morning. Noted pt's c/o pain earlier, per nursing, currently on Consistent Carb diet with adequate PO intake aeb 96% ave. consumed meals (x6) in last 2.5 days. Est. Needs ABW [id number] kcal (17-20 kcal/kgBW), 102-112 gms pro (1.0-1.1 gms/kgBW r/t severe hypoalb wounds). Will continue to monitor pertinent labs and reassess nutrient need prn Labs: Gluc 248 H, Na 132 L, Cl 97 L, Ca 8.4 L, Tpro 6. 2 L, Alb 1.9 L; A1C 14.0 H Skin: Bob scale 19, low risk, pt's left ft DFUs per supervisor network control operators. Pls refer to range manager's notes yesterday for further details re: tx plans. GI: Pt's no bowel activity since 08/02/18 per supervisor network control operators. PES: Altered nutrition related lab values r/t current/chronic medical condition aeb hyperglcyemia, elev a1c, severe hypoalb Obesity r/t food intake more than body requirement aeb 149% IBW, BMI 36.0 kg/m2 and increased body adiposity. Will continue to monitor PO intake, skin status, pertinent labs and weight trend. F/u in 3 to 5 days. Rec.: 1.) If Albumin level continues trending down, consider Prostat 1 pkt BID. 2.) Consider daily MVI with minerals and Asc acid 500 mgs BID. 3.) Continue close supervision during meals. 4.) Refer pt to CDE/RD for further nutrition education and weight monitoring upon discharge. 5.) Continue current plan of care.
--- NOTE | 2018-08-08 15:06 | NUR ---
Dr. Anderson at bedside. Patient stated he's afraid to get up and walk. Both feet on bandages. Dr. Anderson ordered PT Request for Service, make another follow up with Dr. Margarita Astorga for Ortho.
--- NOTE | 2018-08-08 16:38 | NUR ---
Dilaudid IVP given for pain.
[2018-08-08 17:00] VITALS: BP 155/92
--- NOTE | 2018-08-08 19:19 | NUR ---
RECEIVED PATIENT FROM DAY SHIFT RN. PATIENT RESTING IN BED. NO S/S OF DISTRESS NOTED. C/O PAIN @ 05/11. WILL COME BACK FOR PAIN MEDICATION WHEN THE TIME IS DUE. RIGHT KNEE SWOLLEN AND WARM TO TOUCH. DRESSING ON BOTH FEET C/D/I. POC INSTRUCTED AND ENCOURAGED PATIENT TO CALL FOR DRAWING IN HAND IF NEEDED. BED IN LOWEST POSITION WITH SIDE RAILS UP X 2. CALL ALFARO WITHIN REACH. CONTINUE TO MONITOR FOR CHANGES Q1H AND PRN.
--- NOTE | 2018-08-08 20:15 | NUR ---
PAIN MEDICATION GIVEN FOR PAIN @ 10/10 ORDERED. CONTINUE TO MONITOR.
[2018-08-08 20:32] VITALS: BP 155/92
[2018-08-08 22:00] VITALS: BP 140/88
[2018-08-08] MEDS: INSULIN LANTUS (GLARGINE) 1 /0.01ml (100units/ml) SC SCH (22:14)
--- NOTE | 2018-08-08 22:15 | NUR ---
ACCU-CHECK, BS 262. INSULIN AND LANTUS GIVEN ORDERED. CONTINUE TO MONITOR.
--- NOTE | 2018-08-08 23:30 | NUR ---
MEDICATED PATIENT FOR PAIN @ 04/11. CONTINUE TO MONITOR.
[2018-08-09] MEDS: HYDROmorphone HCL 2 MG/ML VL IV PRN ×6 (02:26→20:12)
--- NOTE | 2018-08-09 02:30 | NUR ---
PATIENT C/O PAIN @ 05/11. MEDICATED PATIENT ORDERED. CONTINUE TO MONITOR.
[2018-08-09] MEDS: VANCOMYCIN 1,500 MG in D5W 5% 250 ML IV SCH ×2 (04:10→16:11)
[2018-08-09 05:30] VITALS: BP 153/86
--- NOTE | 2018-08-09 05:31 | NUR ---
PATIENT C/O PAIN @ 05/11. MEDICATED PATIENT ORDERED. CONTINUE TO MONITOR.
[2018-08-09] MEDS: IPRATROPIUM BROM 0.5 MG/2.5ML INH SOL NEB SCH ×3 (06:28→18:58)
[2018-08-09] MEDS: InsuLIN REG 1unit/0.01ml Soln (100units/ml) SC SCH ×4 (06:28→21:59)
[2018-08-09] MEDS: SODIUM CHLORIDE 0.9% 1,000 ML IV SCH (06:28)
[2018-08-09] MEDS: ACCU-CHEK COMFORT CURVE STRIP VI SCH ×4 (06:28→21:58)
[2018-08-09] MEDS: ALBUTEROL SULF 2.5 MG/0.5ML(0.5%) NEB SOLN NEB SCH ×3 (06:28→18:58)
--- NOTE | 2018-08-09 07:25 | NUR ---
Margarita Bell at bedside. ordered patient okay to go home as per Ortho.
--- NOTE | 2018-08-09 07:25 | NUR ---
Margarita Bell at bedside. ordered patient okay to go home as per Neurology. Addendum: 08/09/18 at 0732 by Haylee Sargent RN as per
--- NOTE | 2018-08-09 09:00 | NUR ---
FAXED SS ORDER TO [facility], [facility]
[2018-08-09] MEDS: ENOXAPARIN SOD 40 MG/0.4 ML SYRINGE SC SCH (09:11)
[2018-08-09] MEDS: LEVOFLOXACIN 750MG 150 ML IV SCH (09:11)
--- NOTE | 2018-08-09 09:13 | NUR ---
Patient stated he's in pain, he's afraid to get up and walk. Explained to patient he's scheduled for physical therapy today. Dilaudid IVP given as ordered for severe pain.
[2018-08-09] MEDS: SODIUM CHLOR 0.9% PF (SALINE LOCK) 10ML VIAL/SYR IV SCH ×2 (09:24→21:58)
--- NOTE | 2018-08-09 10:20 | NUR ---
OLAMIDE Casillas came over, stated that patient was assisted to the chair for physical therapy, patient screamed in pain when started taking a step. Patient back to bed.
--- NOTE | 2018-08-09 11:30 | NUR ---
Lisa from [facility] came over. Lisa stated that patient may need one dose of Rocephin IV before discharge. Waiting for hospitalist to come over.
--- NOTE | 2018-08-09 11:43 | NUR ---
[facility]. both agencies will need to be notified for d/c order
--- NOTE | 2018-08-09 12:00 | NUR ---
Pharmacist came over, stated patient's wound culture (-), may need to ask the doctor to discontinue the IV antibiotics. Waiting for the hospitalist to come over.
--- NOTE | 2018-08-09 12:30 | NUR ---
Family at bedside.
--- NOTE | 2018-08-09 12:38 | NUR ---
Patient stated he's in pain, at 8/10 at this time. Dilaudid IVP given as ordered.
--- NOTE | 2018-08-09 16:00 | NUR ---
Received a call from Legal Records Manager Nubia that [facility] ([phone]) and [facility] ([phone]) have to be called if patient gets discharge orders after hours; no one will answer at [place] after hours; patient needs a dose of Rocephin before discharge. Waiting for Dr. Thacker to come over.
--- NOTE | 2018-08-09 16:08 | NUR ---
PER SONYA'S PREVIOUS NOTE IS ACCURATE AND AGREE
--- NOTE | 2018-08-09 16:11 | NUR ---
Patient stated he's in pain; bilateral feet. Dilaudid IVP given for severe pain as ordered.
--- NOTE | 2018-08-09 16:55 | NUR ---
Dr. Rosario at bedside. MD made aware that Pharmacist recommends to discontinue Levaquin IV and Vancomycin IV; Lisa from [facility] said that patient needs to start on Rocephin before discharge, [facility] for home health; OLAMIDE Casillas recommends wheelchair or walker, patient was in severe pain with a single step during physical therapy this morning. Dr. Rosario to put in new orders. Patient for possible discharge tomorrow.
[2018-08-09] MEDS ORDERED: OXYCODONE HCL 5MG TAB PO PRN (17:00)
--- NOTE | 2018-08-09 17:10 | NUR ---
Dr. Rosario ordered [facility] for [facility] IV, wheelchair, home health.
--- NOTE | 2018-08-09 19:30 | NUR ---
RECEIVED PATIENT FROM DAY SHIFT RN. PATIENT RESTING IN BED. NO S/S OF DISTRESS NOTED. C/O PAIN @ 05/11. WILL COME BACK FOR PAIN MEDICATION WHEN THE TIME IS DUE. RIGHT KNEE SWOLLEN AND WARM TO TOUCH. DRESSING ON BOTH FEET C/D/I. POC INSTRUCTED AND ENCOURAGED PATIENT TO CALL FOR IT RISK ADVISOR IF NEEDED. BED IN LOWEST POSITION WITH SIDE RAILS UP X 2. CALL ALFARO WITHIN REACH. CONTINUE TO MONITOR FOR CHANGES Q1H AND PRN.
--- NOTE | 2018-08-09 20:15 | NUR ---
PAIN MEDICATION GIVEN FOR PAIN @ 05/11. CONTINUE TO MONITOR.
[2018-08-09 21:34] VITALS: BP 116/77
[2018-08-09] MEDS: CELECOXIB 100 MG CAP PO SCH (21:58)
[2018-08-09] MEDS: MORPHINE SULF 15mg ER tab PO SCH (21:58)
[2018-08-09] MEDS ORDERED: INSULIN LANTUS (GLARGINE) 1 /0.01ml (100units/ml) SC SCH (22:00)
[2018-08-09] MEDS ORDERED: SENNA 8.6 MG TAB PO SCH (22:00)
--- NOTE | 2018-08-09 23:00 | NUR ---
PATIENT C/O ORAL MORPHINE DID NOT TOUCH HIS PAIN. HIS PAIN LEVEL STILL 8/10, WILL COME BACK FOR PAIN SHOT LATER WHEN THE TIME IS DUE. CONTINUE TO MONITOR.
[2018-08-10] MEDS: HYDROmorphone HCL 2 MG/ML VL IV PRN ×3 (00:28→09:16)
--- NOTE | 2018-08-10 00:29 | NUR ---
MEDICATED PATIENT FOR PAIN @ 10 ORDERED. CONTINUE TO MONITOR.
[2018-08-10 03:16] LABS: Hematocrit 41.3 % (41.0-53.0); Hemoglobin 13.5 g/dL (13.5-17.5); Mean Corpuscular Hemoglobin 27.8 pg (28.0-32.0); Mean Corpuscular Hgb Conc. 32.6 g/dL (32.0-36.0); Mean Corpuscular Volume 85.3 fL (80.0-100.0); Platelet Count (auto) 387 10^3/uL (140-450); Red Blood Cells 4.84 10^6/uL (4.5-5.90); Red Cell Distribution Width 15.1 % (11.8-14.3); White Blood Cell 15.4 10^3/uL (4.4-10.8)
[2018-08-10 03:38] LABS: BUN/Creatinine Ratio 17.1; Potassium 4.1 mmol/L (3.5-5.1)
[2018-08-10 04:23] LABS: Basophils % (manual) 0 (0.0-2.0); Blast Cells 0; Metamyelocytes % 0; Myelocytes % 0; Promyelocytes % 0; Reactive Lymphocytes 0
--- NOTE | 2018-08-10 04:25 | NUR ---
PATIENT C/O PAIN @ 6/10, WHICH IS BETTER THAN BEFORE, STILL WANNA PAIN MEDICATION. MEDICATED PATIENT ORDERED. CONTINUE TO MONITOR.
[2018-08-10 05:45] LABS: Band Neutrophils % (manual) 1; Eosinophils % (manual) 2 (0-7); Lymphocytes % (manual) 20 (10.0-50.0); Monocytes % (manual) 5 (0-12)
[2018-08-10 06:00] VITALS: BP 126/92
[2018-08-10] MEDS: MORPHINE SULF 15mg ER tab PO SCH ×2 (06:33→13:34)
[2018-08-10] MEDS: InsuLIN REG 1unit/0.01ml Soln (100units/ml) SC SCH ×2 (06:33→12:10)
[2018-08-10] MEDS: ACCU-CHEK COMFORT CURVE STRIP VI SCH ×2 (06:33→12:11)
--- NOTE | 2018-08-10 06:33 | NUR ---
ACCU-CHECK, BS 214. INSULIN GIVEN ORDERED. PATIENT C/O PAIN @ 09/11, BUT STILL WANNA TO HAVE SCHEDULED MORPHINE. MEDICATED PATIENT ORDERED. CONTINUE TO MONITOR.
[2018-08-10] MEDS: ALBUTEROL SULF 2.5 MG/0.5ML(0.5%) NEB SOLN NEB SCH ×3 (07:45→13:45)
[2018-08-10] MEDS: IPRATROPIUM BROM 0.5 MG/2.5ML INH SOL NEB SCH ×3 (07:45→13:45)
--- NOTE | 2018-08-10 08:56 | NUR ---
HOME ABX NEW IV ABX ORDER FAXED TO [facility]
[2018-08-10] MEDS ORDERED: MORP15TA PO (09:38)
[2018-08-10] MEDS ORDERED: CEL100T PO (09:39)
[2018-08-10] MEDS ORDERED: SENN-51 PO (09:39)
[2018-08-10] MEDS ORDERED: PERCOT PO (09:39)
[2018-08-10] MEDS ORDERED: ENOXAPARIN SOD 40 MG/0.4 ML SYRINGE SC SCH (10:00)
--- NOTE | 2018-08-10 10:47 | NUR ---
[facility] SENT SS ORDER FOR W/C
[2018-08-10] MEDS: CELECOXIB 100 MG CAP PO SCH (11:09)
[2018-08-10] MEDS: SODIUM CHLOR 0.9% PF (SALINE LOCK) 10ML VIAL/SYR IV SCH (11:10)
[2018-08-10] MEDS: LEVOFLOXACIN 750MG 150 ML IV SCH (11:10)
--- NOTE | 2018-08-10 13:45 | NUR ---
Respiratory note: SCHEDULED MED NEB TX NOT GIVEN DUE TO PATIENT REFUSAL. PATIENT IS IN NO RESPIRATORY DISTRESS AND IS AWAKE/ALERT. KOLE YIP NOTIFIED AND AWARE. WILL CONTINUE TO MONITOR.
[2018-08-10 13:59] VITALS: BP 130/88
--- NOTE | 2018-08-10 14:33 | NUR ---
W/C AND CRUTCHES: INFORMED GENEVIEVE ELYSSA ABOUT W/C IN MDT MEETING THAT I DID NOT ORDER IT SO SHE CAN. ALSO INFORMED PRIMARY RN PHI TO CALL PT OR ORTHO FOR CRUTCHES OR TALK WITH HER CH RN SINCE CH RN AND REST OF MEETING MEMBERS DISCUSSED THEM PROCURING CRUTCHES FOR PT
--- NOTE | 2018-08-10 15:00 | NUR ---
Discharge Discharge instructions given as ordered. Encourage to follow up with PMD as instructed. All questions and concerns addressed. Patient verbalized understanding. Patient refused the flu vaccine, but he is up-to-date with the pneumonia vaccine. PICC line single lumen on right upper arm is intact, flushing well. Patient send home with PICC as he is to have IV antibiotics at home under [facility]. Dressing on both legs changed as per plan and pictures taken prior to discharge. Patient was also given crutches as per doctor's order. Patient signed acknowledgement of receipt of the crutches. Patient taken to vehicle via wheelchair, accompanied by staff and family member. No distress noted at time of departure.
--- NOTE | 2018-08-10 15:29 | NUR ---
FAXED D/C ORDER TO [facility]
== END 2018-08-10 15:00 | disposition home health service (06) | DRG 710 ==
LOC: EDBD 11:18 → ER 11:18 → OVERFLOW 15:15 → EAST 16:50
PROVIDERS: ADMIT Nurse Practitioner Acute Care; ATTEND Internal Medicine
PROC: 02H633Z Insertion of Infusion Device into Right Atrium, Percutaneous Approach (ICD-10-PCS; 2018-08-04)
PROC: 0Y6N0ZF Detachment at Left Foot, Partial 5th Ray, Open Approach (ICD-10-PCS; 2018-08-05)
PROC: 0JBQ0ZZ Excision of Right Foot Subcutaneous Tissue and Fascia, Open Approach (ICD-10-PCS; principal; 2018-08-05 13:51)
PROC: 0S9C3ZX Drainage of Right Knee Joint, Percutaneous Approach, Diagnostic (ICD-10-PCS; 2018-08-09)
DX: A41.89 Other specified sepsis (principal); N17.0 Acute kidney failure with tubular necrosis; J18.1 Lobar pneumonia, unspecified organism; E44.0 Moderate protein-calorie malnutrition; L03.115 Cellulitis of right lower limb; E11.42 Type 2 diabetes mellitus with diabetic polyneuropathy; E11.621 Type 2 diabetes mellitus with foot ulcer; E87.1 Hypo-osmolality and hyponatremia; L03.116 Cellulitis of left lower limb; L97.529 Non-pressure chronic ulcer of other part of left foot with unspecified severity; E87.6 Hypokalemia; E66.9 Obesity, unspecified; E78.5 Hyperlipidemia, unspecified; F32.9 Major depressive disorder, single episode, unspecified; E11.69 Type 2 diabetes mellitus with other specified complication; E11.65 Type 2 diabetes mellitus with hyperglycemia; I10 Essential (primary) hypertension; J06.9 Acute upper respiratory infection, unspecified; J98.11 Atelectasis; L97.519 Non-pressure chronic ulcer of other part of right foot with unspecified severity; M17.11 Unilateral primary osteoarthritis, right knee; M86.172 Other acute osteomyelitis, left ankle and foot; Z79.4 Long term (current) use of insulin; Z82.49 Family history of ischemic heart disease and other diseases of the circulatory system; Z83.3 Family history of diabetes mellitus; Z68.37 Body mass index [BMI] 37.0-37.9, adult; Z87.891 Personal history of nicotine dependence; Z91.19 Patient's noncompliance with other medical treatment and regimen; Z68.36 Body mass index [BMI] 36.0-36.9, adult
CPT/HCPCS: 36415; 36569; 71045; 73562; 73630; 73700; 73718; 80048; 80053; 80202; 82150; 82962; 83036; 83605; 83690; 83735; 84484; 85007; 85025; 85027; 85610; 85652; 85730; 86141; 87040; 87070; 87075; 87077; 87081; 87186; 87205; 89051; 89060; 93005; 93306; 93926; 93971; 94640; 96361; 96365; 96367; 97163; G0378; J0690; J0696; J1815; J1956; J2001; J2250; J2405; J2704; J3490; J7060

== ENCOUNTER 2018-09-02 03:45 | Emergency (ER) | payer MEDICAID ==
[~2018-09-02] VITALS: Ht 177.8 cm; Wt 99.8 kg
[~2018-09-02 03:45] MED LIST changes: +ATOR10TA PO; +CEL100T PO; +INSUINJ18 SC; +INSUINJ37 SC; +METO25TA5 PO; +MORP15TA PO; +PERCOT PO; +SENN-51 PO
[2018-09-02 04:17] VITALS: BP 164/91
== END 2018-09-02 05:10 | disposition left against medical advice (07) ==
LOC: EDBD 03:45 → ER 03:46
DX: M79.671 Pain in right foot (principal); Z53.21 Procedure and treatment not carried out due to patient leaving prior to being seen by health care provider

== ENCOUNTER → 2021-03-30 | Emergency (ER) | payer MEDICAID ==
[~2021-03-30] MED LIST changes: -ENAL20TA70 PO; +ENAL20TA8 PO
== END | disposition left against medical advice (07) ==
LOC: ER 04:03
DX: S02.5XXA Fracture of tooth (traumatic), initial encounter for closed fracture (principal); Z53.21 Procedure and treatment not carried out due to patient leaving prior to being seen by health care provider; X58.XXXA Exposure to other specified factors, initial encounter; Y93.89 Activity, other specified; Y92.89 Other specified places as the place of occurrence of the external cause; Y99.8 Other external cause status

== ENCOUNTER 2022-05-27 12:25 | Inpatient (IN) | payer MEDICAID ==
[~2022-05-27] VITALS: Ht 182.9 cm; Wt 118.3 kg
[~2022-05-27 12:25] MED LIST changes: -SENN-51 PO; +SENN-83 PO
[2022-05-27 14:14] LABS: Basophils # (auto) 0.1 10 ^3/uL (0-0.2); Eosinophils # (auto) 0.2 10 ^3/uL (0-0.8); Neutrophils % (auto) 84.2 % (37.0-80.0)
[2022-05-27 14:16] LABS: Basophils % (auto) 0.7 % (0.0-2.0); Eosinophils % (auto) 1.1 % (0.0-7.0); Hematocrit 36.5 % (41.0-53.0); Lymphocytes # (auto) 1.5 10 ^3/uL (0.4-5.4); Lymphocytes % (auto) 9.5 % (10.0-50.0); Mean Corpuscular Hemoglobin 27.7 pg (28.0-32.0); Mean Corpuscular Volume 83.9 fL (80.0-100.0); Monocytes # (auto) 0.7 10 ^3/uL (0-1.3); Monocytes % (auto) 4.5 % (0.0-12.0); Red Blood Cells 4.35 10^6/uL (4.5-5.90); Red Cell Distribution Width 15.4 % (11.8-14.3); White Blood Cell 15.4 10^3/uL (4.4-10.8)
[2022-05-27 14:30] LABS: Calcium 8.7 mg/dL (8.5-10.1); Potassium 4.9 mmol/L (3.5-5.1)
[2022-05-27] MEDS ORDERED: LACTATED RINGER'S 1,000 ML IV ONE (14:30)
[2022-05-27 14:35] LABS: Bilirubin, Total 0.4 mg/dL (0.2-1.0); Total Protein 6.9 g/dL (6.4-8.2)
[2022-05-27] MEDS ORDERED: VANCOMYCIN PER PHARMACY 0 MG IV SCH ×2 (15:30→18:45)
[2022-05-27] MEDS ORDERED: PIPERACILLIN-TAZO 4.5GM 100 ML IV ONE (15:30)
[2022-05-27] MEDS ORDERED: LACTATED RINGER'S 3,000 ML IV ONE (15:30)
[2022-05-27 15:37] LABS: Lactic Acid w/Reflex 3.1 mmol/L (0.4-2.0)
[2022-05-27] MEDS ORDERED: VANCOMYCIN 1GM/250ML 250 ML IV ONE (15:45)
[2022-05-27] MEDS ORDERED: ACETAMINOPHEN 325 MG TAB PO PRN (18:45)
[2022-05-27] MEDS ORDERED: ONDANSETRON HCL 4 MG/2 ML VIAL IV PRN (18:45)
[2022-05-27] MEDS ORDERED: NITROGLYCERIN 0.4 MG SL TAB SL PRN (18:45)
[2022-05-27] MEDS ORDERED: MORPHINE SULFATE INJ 2 MG/ml SYRG IV PRN ×2 (18:45)
[2022-05-27] MEDS ORDERED: DEXTROSE (50%) 50ML SYRG IV PRN (19:00)
[2022-05-27] MEDS ORDERED: hydrALAZINE HCL 20 MG/ML VL IV PRN (19:00)
[2022-05-27] MEDS: SODIUM CHLORIDE 0.9% 1,000 ML IV SCH (19:17)
[2022-05-27 19:35] LABS: Cholesterol 98 mg/dL (< 200)
[2022-05-27 19:39] LABS: HDL Cholesterol 30 mg/dL (40-59); LDL Cholesterol 56 mg/dL (< 100); Triglycerides 141 mg/dL (< 150)
[2022-05-27 20:42] LABS: Urine Bacteria NONE SEEN /hpf (None Seen); Urine Blood Negative /uL (Negative); Urine Hyaline Cast FEW /lpf (0 - 2); Urine Specific Gravity 1.014 (1.001-1.035); Urine WBC 4 /hpf (0 - 3)
[2022-05-27 21:16] VITALS: BP 131/82
[2022-05-27 21:30] VITALS: BP 131/82
[2022-05-27] MEDS: CELECOXIB 100 MG CAP PO SCH (21:50)
[2022-05-27] MEDS: ATORVASTATIN 20 MG TAB PO SCH (21:51)
[2022-05-27] MEDS: METOPROLOL TARTRATE 25 MG TAB PO SCH (21:52)
[2022-05-27] MEDS: ACCU-CHEK COMFORT CURVE STRIP VI SCH (21:53)
[2022-05-27] MEDS: HEPARIN SODIUM (PORCINE) 5000 UNITS/ML 1ML VIAL SC SCH (21:55)
[2022-05-27] MEDS ORDERED: INSULIN LANTUS (GLARGINE) 1 /0.01ml (100units/ml) SC SCH (22:00)
[2022-05-27] MEDS ORDERED: glyBURIDE 5 MG TAB PO SCH (22:00)
[2022-05-27] MEDS: InsuLIN REG 1unit/0.01ml Soln (100units/ml) SC SCH (22:28)
[2022-05-27] MEDS: PIPERACILLIN-TAZOB 2.25GM 50 ML IV SCH (23:34)
[2022-05-28] VITALS (7 sets, daily range): BP systolic 103–159; BP diastolic 74–98
[2022-05-28] MEDS: SODIUM CHLORIDE 0.9% 1,000 ML IV SCH ×4 (02:45→20:45)
[2022-05-28] MEDS: PIPERACILLIN-TAZOB 2.25GM 50 ML IV SCH (05:34)
[2022-05-28] MEDS: ACCU-CHEK COMFORT CURVE STRIP VI SCH ×4 (05:34→22:00)
[2022-05-28] MEDS: InsuLIN REG 1unit/0.01ml Soln (100units/ml) SC SCH ×4 (05:55→22:00)
[2022-05-28 06:04] LABS: Basophils # (auto) 0.1 10 ^3/uL (0-0.2); Basophils % (auto) 0.9 % (0.0-2.0); Eosinophils # (auto) 0.4 10 ^3/uL (0-0.8); Eosinophils % (auto) 3.4 % (0.0-7.0); Hematocrit 34.5 % (41.0-53.0); Hemoglobin 11.6 g/dL (13.5-17.5); Lymphocytes # (auto) 2.2 10 ^3/uL (0.4-5.4); Lymphocytes % (auto) 18.4 % (10.0-50.0); Mean Corpuscular Hgb Conc. 33.5 g/dL (32.0-36.0); Mean Corpuscular Volume 83.5 fL (80.0-100.0); Monocytes % (auto) 8.7 % (0.0-12.0); Neutrophils # (auto) 8.2 10 ^3/uL (1.6-8.6); Neutrophils % (auto) 68.6 % (37.0-80.0); Nucleated Red Blood Cells % 0.1 %; Red Blood Cells 4.14 10^6/uL (4.5-5.90)
[2022-05-28 06:26] LABS: Potassium 4.1 mmol/L (3.5-5.1)
[2022-05-28 06:39] LABS: Albumin 2.7 g/dL (3.4-5.0); BUN/Creatinine Ratio 16.8; Bilirubin, Total 0.4 mg/dL (0.2-1.0); Calcium 8.6 mg/dL (8.5-10.1); Phosphorus 4.2 mg/dL (2.5-4.90); Total Protein 6.4 g/dL (6.4-8.2)
[2022-05-28] MEDS: METOPROLOL TARTRATE 25 MG TAB PO SCH ×2 (09:27→22:25)
[2022-05-28] MEDS: HEPARIN SODIUM (PORCINE) 5000 UNITS/ML 1ML VIAL SC SCH ×2 (09:29→22:47)
[2022-05-28] MEDS ORDERED: ENALAPRIL MALEATE 10 MG TAB PO SCH (10:00)
[2022-05-28] MEDS: CELECOXIB 100 MG CAP PO SCH (10:31)
[2022-05-28] MEDS ORDERED: VANCOMYCIN 1GM/250ML 250 ML IV SCH (13:00)
[2022-05-28] MEDS ORDERED: MEROPENEM 1GM IVPB 100 ML IV SCH (14:00)
[2022-05-28] MEDS: MEROPENEM 1GM IVPB 100 ML IV SCH (16:27)
[2022-05-28] MEDS: DAPTOmycin 500 MG in SODIUM CHL 0.9% 50 ML IV SCH (17:38)
[2022-05-28] MEDS: INSULIN LANTUS (GLARGINE) 1 /0.01ml (100units/ml) SC SCH (22:00)
[2022-05-28] MEDS: ATORVASTATIN 20 MG TAB PO SCH (22:21)
[2022-05-28] MEDS: HYDROcodone-ACET 5/325MG TAB PO PRN (22:40)
[2022-05-29] MEDS: MEROPENEM 1GM IVPB 100 ML IV SCH ×3 (01:55→22:35)
[2022-05-29 05:07] VITALS: BP 125/85
[2022-05-29 05:08] LABS: Basophils # (auto) 0.1 10 ^3/uL (0-0.2); Basophils % (auto) 1.1 % (0.0-2.0); Eosinophils # (auto) 0.6 10 ^3/uL (0-0.8); Eosinophils % (auto) 6.6 % (0.0-7.0); Hematocrit 36.9 % (41.0-53.0); Hemoglobin 12.6 g/dL (13.5-17.5); Lymphocytes # (auto) 2.6 10 ^3/uL (0.4-5.4); Lymphocytes % (auto) 27.2 % (10.0-50.0); Mean Corpuscular Hgb Conc. 34.2 g/dL (32.0-36.0); Monocytes # (auto) 0.7 10 ^3/uL (0-1.3); Monocytes % (auto) 7.9 % (0.0-12.0); Neutrophils # (auto) 5.4 10 ^3/uL (1.6-8.6); Neutrophils % (auto) 57.2 % (37.0-80.0); Red Cell Distribution Width 15.2 % (11.8-14.3); White Blood Cell 9.5 10^3/uL (4.4-10.8)
[2022-05-29 05:13] LABS: INR 1.02 (0.9-1.15)
[2022-05-29 05:26] LABS: Potassium 3.6 mmol/L (3.5-5.1)
[2022-05-29 05:28] LABS: BUN/Creatinine Ratio 14.5; Calcium 8.8 mg/dL (8.5-10.1)
[2022-05-29] MEDS: SODIUM CHLORIDE 0.9% 1,000 ML IV SCH (06:27)
[2022-05-29] MEDS: ACCU-CHEK COMFORT CURVE STRIP VI SCH ×4 (06:27→22:38)
[2022-05-29] MEDS: InsuLIN REG 1unit/0.01ml Soln (100units/ml) SC SCH ×4 (06:27→22:40)
[2022-05-29 08:00] VITALS: BP 154/89
[2022-05-29 09:00] VITALS: BP 154/89
[2022-05-29] MEDS: METOPROLOL TARTRATE 25 MG TAB PO SCH ×2 (09:59→22:36)
[2022-05-29] MEDS: HEPARIN SODIUM (PORCINE) 5000 UNITS/ML 1ML VIAL SC SCH ×2 (10:06→22:37)
[2022-05-29] MEDS ORDERED: SERTRALINE HCL 50 MG TAB PO ONE (10:15)
[2022-05-29] MEDS: DAPTOmycin 500 MG in SODIUM CHL 0.9% 50 ML IV SCH (10:24)
[2022-05-29 13:00] VITALS: BP 132/80
[2022-05-29 17:00] VITALS: BP 129/87
[2022-05-29 22:00] VITALS: BP 153/78
[2022-05-29] MEDS: ATORVASTATIN 20 MG TAB PO SCH (22:35)
[2022-05-29] MEDS: HYDROcodone-ACET 5/325MG TAB PO PRN (22:35)
[2022-05-29] MEDS: INSULIN LANTUS (GLARGINE) 1 /0.01ml (100units/ml) SC SCH (22:40)
[2022-05-30 05:14] VITALS: BP 126/85
[2022-05-30] MEDS: ACCU-CHEK COMFORT CURVE STRIP VI SCH ×4 (06:02→22:00)
[2022-05-30] MEDS: MEROPENEM 1GM IVPB 100 ML IV SCH ×3 (06:02→22:25)
[2022-05-30] MEDS: InsuLIN REG 1unit/0.01ml Soln (100units/ml) SC SCH ×4 (06:03→23:42)
[2022-05-30 07:46] LABS: Calcium 8.4 mg/dL (8.5-10.1); Potassium 4.3 mmol/L (3.5-5.1)
[2022-05-30 07:50] LABS: BUN/Creatinine Ratio 15.6
[2022-05-30 09:00] VITALS: BP 146/85
[2022-05-30] MEDS: DAPTOmycin 500 MG in SODIUM CHL 0.9% 50 ML IV SCH (10:06)
[2022-05-30] MEDS: SERTRALINE HCL 50 MG TAB PO SCH (10:07)
[2022-05-30] MEDS: METOPROLOL TARTRATE 25 MG TAB PO SCH ×2 (10:07→22:26)
[2022-05-30] MEDS: HEPARIN SODIUM (PORCINE) 5000 UNITS/ML 1ML VIAL SC SCH ×2 (10:08→23:43)
[2022-05-30 13:00] VITALS: BP 136/95
[2022-05-30 17:00] VITALS: BP 137/88
[2022-05-30 18:12] LABS: Hematocrit 37.8 % (41.0-53.0); Hemoglobin 12.9 g/dL (13.5-17.5)
[2022-05-30 22:00] VITALS: BP 150/93
[2022-05-30] MEDS: ATORVASTATIN 20 MG TAB PO SCH (22:26)
[2022-05-30] MEDS: INSULIN LANTUS (GLARGINE) 1 /0.01ml (100units/ml) SC SCH (23:41)
[2022-05-31 05:00] VITALS: BP 142/87
[2022-05-31] MEDS: MEROPENEM 1GM IVPB 100 ML IV SCH ×3 (06:46→21:55)
[2022-05-31] MEDS: ACCU-CHEK COMFORT CURVE STRIP VI SCH ×4 (06:47→21:59)
[2022-05-31] MEDS: InsuLIN REG 1unit/0.01ml Soln (100units/ml) SC SCH ×4 (07:26→21:53)
[2022-05-31 09:00] VITALS: BP 145/91
[2022-05-31] MEDS ORDERED: ceFAZolin 1GM VL ONE (09:53)
[2022-05-31] MEDS ORDERED: LIDOCAINE 1%HCL (LOCAL ANESTH) 10 ML MDV ONE (09:53)
[2022-05-31] MEDS ORDERED: BUPIVACAINE HCL 0.25% P/F 10 ML VIAL ONE (09:54)
[2022-05-31] MEDS: DAPTOmycin 500 MG in SODIUM CHL 0.9% 50 ML IV SCH (10:00)
[2022-05-31] MEDS: SERTRALINE HCL 50 MG TAB PO SCH (10:00)
[2022-05-31] MEDS: HEPARIN SODIUM (PORCINE) 5000 UNITS/ML 1ML VIAL SC SCH ×2 (10:00→21:52)
[2022-05-31] MEDS: METOPROLOL TARTRATE 25 MG TAB PO SCH ×2 (10:00→21:55)
[2022-05-31] MEDS: DAKINS QUARTER STR 0.125% (NaHypochlorite) 473 ML TOPICAL SOL TOP SCH (10:00)
[2022-05-31] MEDS ORDERED: ONDANSETRON HCL 4 MG/2 ML VIAL IV ONE (10:01)
[2022-05-31] MEDS ORDERED: MIDAZOLAM HCL 2MG/2ML 2ml VIAL (1mg/ml) ONE (10:26)
[2022-05-31] MEDS ORDERED: fentaNYL CITRATE 100 MCG/2 ML VL ONE (10:26)
[2022-05-31] MEDS ORDERED: ceFAZolin 1GM/50ML 100 ML IV ONE (10:44)
[2022-05-31] MEDS ORDERED: BACITRACIN TOP OINT 1 UD PKG TOP ONE (11:12)
[2022-05-31] MEDS ORDERED: HYDROmorphone HCL 2 MG/ML VL/or syr IV PRN ×2 (11:45)
[2022-05-31 13:00] VITALS: BP 117/72
[2022-05-31 17:00] VITALS: BP 108/75
[2022-05-31 21:53] VITALS: BP 139/78
[2022-05-31] MEDS: INSULIN LANTUS (GLARGINE) 1 /0.01ml (100units/ml) SC SCH (21:53)
[2022-05-31] MEDS: ATORVASTATIN 20 MG TAB PO SCH (21:54)
[2022-05-31] MEDS: HYDROcodone-ACET 5/325MG TAB PO PRN (22:54)
[2022-06-01 05:00] VITALS: BP 137/76
[2022-06-01] MEDS: MEROPENEM 1GM IVPB 100 ML IV SCH (05:42)
[2022-06-01] MEDS: ACCU-CHEK COMFORT CURVE STRIP VI SCH ×4 (06:23→23:14)
[2022-06-01] MEDS: InsuLIN REG 1unit/0.01ml Soln (100units/ml) SC SCH ×4 (06:23→23:13)
[2022-06-01 08:30] VITALS: BP 145/77
[2022-06-01] MEDS: DAKINS QUARTER STR 0.125% (NaHypochlorite) 473 ML TOPICAL SOL TOP SCH (08:43)
[2022-06-01] MEDS: METOPROLOL TARTRATE 25 MG TAB PO SCH ×2 (09:23→23:09)
[2022-06-01] MEDS: SERTRALINE HCL 50 MG TAB PO SCH (09:23)
[2022-06-01] MEDS: DAPTOmycin 500 MG in SODIUM CHL 0.9% 50 ML IV SCH (09:28)
[2022-06-01] MEDS: HEPARIN SODIUM (PORCINE) 5000 UNITS/ML 1ML VIAL SC SCH ×2 (11:36→23:12)
[2022-06-01 12:30] VITALS: BP 149/87
[2022-06-01] MEDS: ERTAPENEM SOD INJ 1 GM in SODIUM CHL 0.9% 50 ML IV SCH (16:40)
[2022-06-01 16:52] VITALS: BP 158/89
[2022-06-01 19:52] LABS: BUN/Creatinine Ratio 17.1; Calcium 8.5 mg/dL (8.5-10.1); Potassium 4.3 mmol/L (3.5-5.1)
[2022-06-01 19:55] LABS: Bilirubin, Total 0.3 mg/dL (0.2-1.0); Total Protein 7.3 g/dL (6.4-8.2)
[2022-06-01 22:00] VITALS: BP 159/98
[2022-06-01] MEDS: ATORVASTATIN 20 MG TAB PO SCH (23:08)
[2022-06-01] MEDS: INSULIN LANTUS (GLARGINE) 1 /0.01ml (100units/ml) SC SCH (23:20)
[2022-06-02 05:00] VITALS: BP 146/87
[2022-06-02] MEDS: ACCU-CHEK COMFORT CURVE STRIP VI SCH ×2 (06:29→11:59)
[2022-06-02] MEDS: InsuLIN REG 1unit/0.01ml Soln (100units/ml) SC SCH ×2 (06:30→12:00)
[2022-06-02] MEDS: METOPROLOL TARTRATE 25 MG TAB PO SCH (08:48)
[2022-06-02] MEDS: DAPTOmycin 500 MG in SODIUM CHL 0.9% 50 ML IV SCH (08:49)
[2022-06-02] MEDS: SERTRALINE HCL 50 MG TAB PO SCH (08:50)
[2022-06-02 08:51] VITALS: BP 166/86
[2022-06-02] MEDS: HEPARIN SODIUM (PORCINE) 5000 UNITS/ML 1ML VIAL SC SCH (08:59)
[2022-06-02] MEDS ORDERED: SODIUM CHL 0.9% IV SCH (10:00)
[2022-06-02] MEDS ORDERED: DAPTOMYCIN IV SCH (10:00)
[2022-06-02] MEDS: ERTAPENEM SOD INJ 1 GM in SODIUM CHL 0.9% 50 ML IV SCH (10:05)
[2022-06-02] MEDS ORDERED: SERT50TA PO (10:14)
[2022-06-02] MEDS ORDERED: ENALAPRIL MALEATE 10 MG TAB PO ONE (10:15)
[2022-06-02] MEDS: DAKINS QUARTER STR 0.125% (NaHypochlorite) 473 ML TOPICAL SOL TOP SCH (11:58)
[2022-06-02 12:38] VITALS: BP 132/80
[2022-06-02 12:46] VITALS: BP 132/80
[2022-06-03] MEDS ORDERED: ENALAPRIL MALEATE 10 MG TAB PO SCH (10:00)
== END 2022-06-02 15:54 | disposition home health service (06) | DRG 721 ==
LOC: EDBD 12:25 → ER 12:25 → TELE 18:46 → TELE-CENTR 21:19 → CENTRAL 05-29 07:31
PROVIDERS: ADMIT Registered Nurse; ATTEND Internal Medicine
PROC: 0QBL0ZX Excision of Right Tarsal, Open Approach, Diagnostic (ICD-10-PCS; 2022-05-31)
PROC: 0JBQ0ZZ Excision of Right Foot Subcutaneous Tissue and Fascia, Open Approach (ICD-10-PCS; principal; 2022-05-31 10:53)
DX: T81.41XA Infection following a procedure, superficial incisional surgical site, initial encounter (principal); N17.0 Acute kidney failure with tubular necrosis; A41.9 Sepsis, unspecified organism; Z20.822 Contact with and (suspected) exposure to COVID-19; E11.51 Type 2 diabetes mellitus with diabetic peripheral angiopathy without gangrene; E11.621 Type 2 diabetes mellitus with foot ulcer; L03.115 Cellulitis of right lower limb; L97.519 Non-pressure chronic ulcer of other part of right foot with unspecified severity; E11.65 Type 2 diabetes mellitus with hyperglycemia; I10 Essential (primary) hypertension; M86.8X7 Other osteomyelitis, ankle and foot; E66.9 Obesity, unspecified; F32.A Depression, unspecified; Z79.899 Other long term (current) drug therapy; Z82.49 Family history of ischemic heart disease and other diseases of the circulatory system; Z83.3 Family history of diabetes mellitus; Z89.431 Acquired absence of right foot; Z68.35 Body mass index [BMI] 35.0-35.9, adult
CPT/HCPCS: 36415; 71045; 73630; 73718; 80048; 80053; 80061; 80069; 80202; 81001; 82550; 82962; 83036; 83605; 84484; 85014; 85018; 85025; 85610; 85730; 86850; 86900; 86901; 87040; 87070; 87075; 87077; 87186; 87205; 87426; 93005; 93306; 93926; 96361; 96365; 96366; 96367; 99291; G0378; J0690; J1335; J1815; J2001; J2185; J2250; J2405; J2543; J3490

== ENCOUNTER 2022-10-11 18:27 | Emergency (ER) | payer MEDICAID ==
[~2022-10-11] VITALS: Ht 180.3 cm; Wt 132.9 kg
[~2022-10-11 18:27] MED LIST changes: +SERT50TA PO
[2022-10-11 18:52] VITALS: BP 187/102
[2022-10-11] MEDS ORDERED: cloNIDine HCL 0.1 MG TAB PO ONE (19:15)
[2022-10-11] MEDS ORDERED: TETRACAINE HCL 0.5% OPTH(EYE) SOLN 4ML LEFTEYE ONE (19:30)
[2022-10-11] MEDS ORDERED: CEFEPIME 1GM/ 50ML 50 ML IV ONE (20:00)
[2022-10-11] MEDS ORDERED: VANCOMYCIN 1GM/250ML 250 ML IV ONE (20:00)
[2022-10-11 20:16] LABS: Basophils # (auto) 0.1 10 ^3/uL (0-0.2); Eosinophils # (auto) 0.3 10 ^3/uL (0-0.8); Lymphocytes # (auto) 2.5 10 ^3/uL (0.4-5.4); Monocytes # (auto) 0.7 10 ^3/uL (0-1.3)
[2022-10-11 20:19] LABS: Basophils % (auto) 0.5 % (0.0-2.0); Eosinophils % (auto) 2.9 % (0.0-7.0); Hematocrit 41.9 % (41.0-53.0); Hemoglobin 13.8 g/dL (13.5-17.5); Lymphocytes % (auto) 23.8 % (10.0-50.0); Mean Corpuscular Hemoglobin 26.7 pg (28.0-32.0); Mean Corpuscular Volume 80.9 fL (80.0-100.0); Monocytes % (auto) 6.4 % (0.0-12.0); Neutrophils # (auto) 6.8 10 ^3/uL (1.6-8.6); Neutrophils % (auto) 66.4 % (37.0-80.0); Nucleated Red Blood Cells % 0.2 %; Red Blood Cells 5.18 10^6/uL (4.5-5.90); Red Cell Distribution Width 16.5 % (11.8-14.3); White Blood Cell 10.3 10^3/uL (4.4-10.8)
[2022-10-11 20:35] LABS: INR 0.9 (0.9-1.15)
[2022-10-11 20:49] LABS: Albumin 3.6 g/dL (3.4-5.0); Calcium 8.8 mg/dL (8.5-10.1)
[2022-10-11 20:53] LABS: BUN/Creatinine Ratio 17.5; Bilirubin, Total 0.4 mg/dL (0.2-1.0); Total Protein 6.9 g/dL (6.4-8.2)
== END 2022-10-11 22:29 | disposition home or self-care (01) ==
LOC: ER 18:29
DX: H43.12 Vitreous hemorrhage, left eye (principal); I10 Essential (primary) hypertension; E11.8 Type 2 diabetes mellitus with unspecified complications; Z79.899 Other long term (current) drug therapy; Z79.84 Long term (current) use of oral hypoglycemic drugs; Z79.4 Long term (current) use of insulin; Z79.82 Long term (current) use of aspirin
CPT/HCPCS: 36415; 80053; 85025; 85610